=== PATIENT | female | born 1980 | race Two or more races ===

== ENCOUNTER 2018-05-18 14:17 | Emergency (ER) | payer OTHER ==
[~2018-05-18] VITALS: Ht 162.6 cm; Wt 74.8 kg
[~2018-05-18 14:17] MED LIST: CEFUROXIME500 MG PO; SEPTRA DS TABLE1 TAB PO; URIN D.S. TABL1 EACH PO
== END 2018-05-18 21:01 | disposition home or self-care (01) ==
LOC: ER 14:17
DX: J11.1 Influenza due to unidentified influenza virus with other respiratory manifestations (principal); K52.9 Noninfective gastroenteritis and colitis, unspecified

== ENCOUNTER → 2018-12-08 | Emergency (ER) | payer OTHER ==
[~2018-12-08] VITALS: Ht 157.5 cm; Wt 75.7 kg
[~2018-12-08] MED LIST changes: +KETO10TA2 PO; +MAPAP500 MG; +SKELAXIN800 MG PO
== END | disposition home or self-care (01) ==
LOC: ER 21:10
DX: S73.192A Other sprain of left hip, initial encounter (principal); X50.3XXA Overexertion from repetitive movements, initial encounter; Y93.89 Activity, other specified; Y92.89 Other specified places as the place of occurrence of the external cause; Y99.8 Other external cause status

== ENCOUNTER 2019-11-01 11:41 | Emergency (ER) | payer OTHER ==
[~2019-11-01] VITALS: Ht 157.5 cm; Wt 74.4 kg
== END 2019-11-01 12:57 | disposition home or self-care (01) ==
LOC: ER 11:41
DX: M94.0 Chondrocostal junction syndrome [Tietze] (principal)

== ENCOUNTER 2022-05-24 22:01 | Emergency (ER) | payer OTHER ==
[~2022-05-24] VITALS: Ht 157.5 cm; Wt 78.9 kg
== END 2022-05-25 03:21 | disposition left against medical advice (07) ==
LOC: ER 22:01
DX: R10.2 Pelvic and perineal pain (principal)

== ENCOUNTER 2022-09-13 15:43 | Emergency (ER) | payer OTHER ==
[~2022-09-13] VITALS: Ht 157.5 cm; Wt 82.6 kg
== END 2022-09-13 18:44 | disposition home or self-care (01) ==
LOC: ER 15:43
DX: U07.1 COVID-19 (principal); Z20.822 Contact with and (suspected) exposure to COVID-19; R53.81 Other malaise

== ENCOUNTER 2023-04-02 09:11 | Emergency (ER) | payer OTHER ==
[~2023-04-02] VITALS: Ht 157.5 cm; Wt 82.1 kg
[2023-04-02 11:08] LABS: HEMATOCRIT 37.4 % (36.0-45.00); HEMOGLOBIN 12.8 g/dL (12.0-15.00); MEAN CELL VOLUME 92.1 fL (80.00-100.00); MEAN CORPUSCULAR HEMOGLOBIN 31.4 pg (27.00-32.0); MEAN CORPUSCULAR HGB CONC 34.1 g/dl (32.0-36.0); PLATELET COUNT 282 K/uL (150-450); RED BLOOD COUNT 4.06 M/uL (4.00-6.00); RED CELL DISTRIBUTION WIDTH 13.6 % (11.5-14.5)
== END 2023-04-02 15:43 | disposition home or self-care (01) ==
LOC: ER 09:11
PROVIDERS: General Practice
DX: J45.998 Other asthma (principal); Z20.822 Contact with and (suspected) exposure to COVID-19